=== PATIENT | female | born 1995 | race Caucasian/White ===

== ENCOUNTER 2017-03-04 11:13 | Emergency (ER) | payer OTHER ==
[2017-03-04] MEDS ORDERED: Ondansetron INJ* 2 MG/ML VIAL IV ONE (11:56)
[2017-03-04] MEDS ORDERED: LORazepam INJ* 2 MG/ML 1 ML VIAL IV PUSH ONE (11:58)
[2017-03-04 12:03] VITALS: BP 116/85
[2017-03-04 12:28] LABS: Hematocrit 41 % (35-47); Hemoglobin 13.7 g/dl (12.0-16.0); Mean Corpuscular HGB Conc 34 g/dl (31-36); Mean Corpuscular Hemoglobin 29 pg (27-31); Mean Corpuscular Volume 85 fL (80-97); Mean Platelet Volume 8 um3 (7.4-10.4); Red Cell Distribution Width 14 % (10.5-15); White Blood Count 3.7 10^3/ul (3.5-10.8)
[2017-03-04 12:30] LABS: Urine Bilirubin Negative (Negative); Urine Glucose Negative (Negative); Urine Nitrite Negative (Negative)
[2017-03-04 12:44] LABS: Albumin 4.2 g/dL (3.2-5.2); BUN/Creatinine Ratio 11.3 (8-20); C Reactive Protein 2.29 mg/L (< 5.00); Calcium 8.9 mg/dL (8.6-10.3); EGFR African American 118.8 (>60); EGFR Non-African American 92.4 (>60); Globulin 2.8 g/dL (2-4); Potassium 3.8 mmol/L (3.5-5.0); Total Bilirubin 0.3 mg/dL (0.2-1.0)
[2017-03-04] MEDS ORDERED: Iohexol 300* (CONTRAST) 10 ML SDV IV ONE (13:58)
--- NOTE | 2017-03-04 14:15 | RAD ---
CLINICAL HISTORY: Abdominal pain for one week COMPARISON: None TECHNIQUE: Multiple contiguous axial CT scans were obtained of the abdomen and pelvis after the administration of intravenous contrast. Coronal and sagittal multiplanar reformations are submitted for review. Oral contrast was administered. Delayed images were obtained through the abdomen and pelvis. FINDINGS: LUNG BASES: The lung bases are clear. LIVER: The liver is normal in shape, size, contour, and attenuation. BILE DUCTS: There is no intrahepatic or extrahepatic biliary dilatation. GALLBLADDER: The gallbladder is normal, without pericholecystic inflammatory change. PANCREAS: The pancreas is normal, without mass or ductal dilatation. SPLEEN: Normal in size and appearance. UPPER GI TRACT: Evaluation of the gastrointestinal tract is limited by incomplete gastric distention. The upper GI tract is unremarkable. SMALL BOWEL AND MESENTERY: The small bowel is normal in contour, course, and caliber. There is no obstruction or dilatation. COLON: The colon is normal in contour, course, caliber. There is no pericolonic inflammatory change. There is large amount of stool within the colon. There is a tubular, vermiform, hollow viscus that is blind ending, and originates from the cecum, consistent with a normal appendix. There is no periappendiceal inflammatory change. This is best seen on axial images 61 through 56. ADRENALS: Normal bilaterally. KIDNEYS: The kidneys are normal in shape, size, contour, and axis. There is no hydronephrosis or nephrolithiasis. BLADDER: The bladder is smooth in contour. PELVIC ORGANS: The uterus and adnexa are grossly normal for technique. There is a trace of fluid within the pelvic cul-de-sac. This may be physiologic within a reproductive age female. AORTA: The aorta is normal. IVC: Unremarkable LYMPH NODES: There is no lymphadenopathy by size criteria. ABDOMINAL WALL: There is no evidence for abdominal wall hernia. BONES AND SOFT TISSUES: The bones and soft tissues are unremarkable. OTHER: None IMPRESSION: LARGE AMOUNT STOOL WITHIN THE COLON. SMALL AMOUNT OF FLUID WITHIN THE PELVIC CUL-DE-SAC. THIS MAY BE PHYSIOLOGIC WITHIN A REPRODUCTIVE AGE FEMALE.
--- NOTE | 2017-03-05 08:26 | ED ---
Abdominal Pain/Female - HPI Summary HPI Summary: Patient sent here from [facility]. She was seen by Dr Ayesha Brody yesterday and informed to come to ED if symptoms become worse. Patient stated she went to [facility] for c/o "stomach bug" with a few episodes of vomiting last week. Since then she has had some abdominal discomfort and cramping. Although she continues to have cramping currently, episodes of cramping and nausea have been intermittent x 7 days. She notes to less BM's, but last BM 2 days ago and was normal. Denies diarrhea. Pain in the abdomen is diffuse and moves depending on her positioning. Yesterday at [place] her pain was more localized to the RLQ, but d/t no fever or worsening pain on palpation, patient was at a low risk for appendicitis, and provider did not feel she was emergent at that time. KUB was performed and showed a moderate amount of stool. Dr. Richardson noted there was calcifications above the transverse colon which could indicated chronic pancreatitis or from medications. Amylase and Lipase were ordered and both negative. Patient then informed [facility] provider she would like to go to [facility] after her parents arrive tomorrow. She arrives with same complaint, although pain is now more located to the LLQ. Denies epigastric pain, back pain, urinary symptoms, vaginal discharge, or concern for STI's. PMHx includes left ovarian cyst 2 years ago. She states this pain is different. She has moderate anxiety and takes clonazepam daily. She did not take it this morning. All labs yesterday were WNL. Nothing makes the pain better or worse. - History of Current Complaint Chief Complaint: Tawanna Stated Complaint: ABDOMINAL PAIN Time Seen by Provider: 03/04/17 11:24 Hx Obtained From: Patient ?: No Onset/Duration: Gradual Onset Timing: Hours Severity Initially: Moderate Severity Currently: Moderate Pain Intensity: 4 Pain Scale Used: 0-10 Numeric Location: Diffuse Radiates: No Character: Sharp, Cramping Aggravating Factor(s): Nothing Alleviating Factor(s): Nothing Allergies/Adverse Reactions: Allergies Allergy/AdvReac Type Severity Reaction Status Date / Time Amoxicillin Allergy Severe Hives Verified 03/04/17 11:17 PMH/Surg Hx/FS Hx/Imm Hx Previously Healthy: Yes Endocrine/Hematology History: Denies: Hx Diabetes Cardiovascular History: Denies: Hx Hypertension History: Denies: Hx Renal Disease - Immunization History Hx Pertussis Vaccination: Yes Immunizations Up to Date: Yes Infectious Disease History: No Infectious Disease History: Denies: Traveled Outside the [place] in Last 30 Days - Social History Occupation: Student Lives: Alone Alcohol Use: None Hx Substance Use: No Substance Use Type: Reports: None Hx Tobacco Use: No Smoking Status (MU): Never Smoked Tobacco Review of Systems Constitutional: Negative ENT: Negative Cardiovascular: Negative Respiratory: Negative Positive: Abdominal Pain, Vomiting, Nausea Genitourinary: Negative Positive: no symptoms reported, see HPI Musculoskeletal: Negative Skin: Negative Neurological: Negative Positive: Anxious All Other Systems Reviewed And Are Negative: Yes Physical Exam Triage Information Reviewed: Yes Vital Signs On Initial Exam: Initial Vitals Temp Pulse Resp BP Pulse Ox 98.0 F 79 15 116/65 99 03/04/17 11:16 03/04/17 11:16 03/04/17 11:16 03/04/17 11:16 03/04/17 11:16 Vital Signs Reviewed: Yes Appearance: Positive: Well-Appearing, No Pain Distress, Well-Nourished Skin: Positive: Warm, Skin Color Reflects Adequate Perfusion Eyes: Positive: Normal, Conjunctiva Clear Neck: Positive: Supple, No Lymphadenopathy Respiratory/Lung Sounds: Positive: Clear to Auscultation, Breath Sounds Present Cardiovascular: Positive: Normal, RRR, Pulses are Symmetrical in both Upper and Lower Extremities Abdomen Description: Positive: Soft, Other: - tenderness over LLQ, no tenderness over mcburneys point, rebound negative, murphys negative. No CVA tenderness, guarding or hepatomegaly. No masses identified. Deferred pelvic exam at this point. Bowel Sounds: Positive: Present Musculoskeletal: Positive: Normal, Strength/ROM Intact Neurological: Positive: Sensory/Motor Intact, Alert, Oriented to Person Place, Time Psychiatric: Positive: Normal AVPU Assessment: Alert Diagnostics - Vital Signs Vital Signs Temp Pulse Resp BP Pulse Ox 03/04/17 12:20 22 03/04/17 11:59 98 F 79 16 116/85 99 03/04/17 11:16 98.0 F 79 15 116/65 99 - Laboratory Lab Results: Lab Results 03/04/17 03/04/17 03/04/17 Range/Units 12:15 12:15 12:15 WBC 3.7 (3.5-10.8) 10^3/ul RBC 4.80 (4.0-5.4) 10^6/ul Hgb 13.7 (12.0-16.0) g/dl Hct 41 (35-47) % MCV 85 (80-97) fL MCH 29 (27-31) pg MCHC 34 (31-36) g/dl RDW 14 (10.5-15) % Plt Count 177 (150-450) 10^3/ul MPV 8 (7.4-10.4) um3 Neut % (Auto) 48.6 (38-83) % Lymph % (Auto) 27.3 (25-47) % [place] % (Auto) 18.6 H (1-9) % Eos % (Auto) 4.7 (0-6) % Baso % (Auto) 0.8 (0-2) % Absolute Neuts (auto) 1.8 (1.5-7.7) 10^3/ul Absolute Lymphs (auto) 1.0 (1.0-4.8) 10^3/ul Absolute Monos (auto) 0.7 (0-0.8) 10^3/ul Absolute Eos (auto) 0.2 (0-0.6) 10^3/ul Absolute Basos (auto) 0 (0-0.2) 10^3/ul Absolute Nucleated RBC 0 10^3/ul Nucleated RBC % 0.1 Sodium 136 (133-145) mmol/L Potassium 3.8 (3.5-5.0) mmol/L Chloride 104 (101-111) mmol/L Carbon Dioxide 26 (22-32) mmol/L Anion Gap 6 (2-11) mmol/L BUN 9 (6-24) mg/dL Creatinine 0.80 (0.51-0.95) mg/dL Est GFR ( Amer) 118.8 (>60) Est GFR (Non-Af Amer) 92.4 (>60) BUN/Creatinine Ratio 11.3 (8-20) Glucose 83 (70-100) mg/dL Calcium 8.9 (8.6-10.3) mg/dL Total Bilirubin 0.30 (0.2-1.0) mg/dL AST 27 (13-39) U/L ALT 20 (7-52) U/L Alkaline Phosphatase 52 (34-104) U/L C-Reactive Protein 2.29 (< 5.00) mg/L Total Protein 7.0 (6.4-8.9) g/dL Albumin 4.2 (3.2-5.2) g/dL Globulin 2.8 (2-4) g/dL Albumin/Globulin Ratio 1.5 (1-3) Lipase 22 (11.0-82.0) U/L Beta HCG, Quant 0.65 mIU/mL Urine Color Straw Urine Appearance Clear Urine pH 7.0 (5-9) Ur Specific [place] 1.003 L (1.010-1.030) Urine Protein Negative (Negative) Urine Ketones Negative (Negative) Urine Blood Negative (Negative) Urine Nitrate Negative (Negative) Urine Bilirubin Negative (Negative) Urine Urobilinogen Negative (Negative) Ur Leukocyte Esterase Negative (Negative) Urine Glucose Negative (Negative) Result Diagrams: 03/04/17 12:15 03/04/17 12:15 Lab Statement: Any lab studies that have been ordered have been reviewed, and results considered in the medical decision making process. Abdominal Pain Fem Course/Dx - Course Course Of Treatment: Patient evaluated for abdominal pain. Endorses some nausea and given zofran. Patient is very anxious and tearful on arrival and offered ativan. Patient willing to take the ativan and OK with CT scan. Spoke with Dr. Ayesha Brody from [facility] and received report, KUB and lab work obtained yesterday. Risks and benefits of US vs. CT scan with contrast discussed with patient. Patient requests CT scan based on results from yesterdays KUB with possible chronic pancreatitis. CT scan revealed large amount of stool in colon, with no additional findings. Patient made aware of results. Parents are in the room at time of discussion. Patient encouraged to follow up with Dr. Velazquez in GI if symptoms persist. Encouarged to increase fluid intake, fiber intake and 3 days of senna at night for relief of constipation. Explained that the provider could not definatelvely rule out other causes of pain, but that CT with contrast was the best scan at this point - and is unlikely that it is something other than constipation. Patient encouraged to follow up with OBGYN as well. Patient OK for discharge and will follow up as needed. - Diagnoses Differential Diagnosis: Positive: Appendicitis, Ovarian Cyst, Urinary Tract Infection Provider Diagnoses: CONSTIPATION Discharge - Discharge Plan Condition: Stable Disposition: HOME Patient Education Materials: Senna (By mouth), Constipation (ED) Referrals: [facility] [Primary Care Provider] - Yomi Abreu MD [Medical Doctor] - Jefferson Velazquez MD [Medical Doctor] - Additional Instructions: Increase fiber intake. Increase fluid intake. Senna at night x 3 nights, more if needed. If you feel you are not getting relief with Senna, you may take Miralax for relief.
== END 2017-03-04 15:00 | disposition home or self-care (01) ==
LOC: ED 11:13
DX: K59.00 Constipation, unspecified (principal); R10.9 Unspecified abdominal pain; R11.2 Nausea with vomiting, unspecified; F41.9 Anxiety disorder, unspecified
CPT/HCPCS: 36415; 74177; 80053; 81003; 83690; 84702; 85025; 86140; 96374; 96375; 99282; J2060; J2405; Q9967